=== PATIENT | male | born 1975 | race Hispanic/Latino ===

== ENCOUNTER 2017-04-22 08:02 | Inpatient (IN) | payer OTHER ==
--- NOTE | 2017-04-22 08:22 | ED PDOC ---
HPI: Skin/Bite Injury Time Seen by Provider: 04/22/17 08:09 Chief Complaint (Nursing): Back Pain Chief Complaint (Provider): Pain and Swelling to Perirectal Area History Per: Patient History/Exam Limitations: no limitations Onset/Duration Of Symptoms: Days (x1-2 months) Current Symptoms Are (Timing): Still Present Additional Complaint(s): Jet Swanson is a 41 year old male referred to the ED by his PMD for pain and swelling to his perirectal area. The patient is status post pilonidal abscess drainage occurring at the end of February with revision in March. The patient complains of increased pain and swelling upon evaluation. He denies fever or drainage. PMD: TBD Past Medical History Reviewed: Historical Data, Nursing Documentation, Vital Signs Vital Signs: Last Vital Signs Temp 97 F L 04/22/17 08:09 Pulse 83 04/22/17 08:09 Resp BP 127/76 04/22/17 08:09 Pulse Ox 98 04/22/17 08:26 - Medical History PMH: No Chronic Diseases - Family History Family History: States: Unknown Family Hx - Home Medications Home Medications: Ambulatory Orders Medication Instructions Recorded Atorvastatin [Lipitor] 10 mg PO DAILY 04/22/17 amLODIPine [Norvasc] 5 mg PO DAILY 04/22/17 - Allergies Allergies/Adverse Reactions: Allergies Allergy/AdvReac Type Severity Reaction Status Date / Time No Known Allergies Allergy Verified 04/22/17 08:16 Review of Systems ROS Statement: Except As Marked, All Systems Reviewed And Found Negative Constitutional: Negative for: Fever (and no drainage to perirectal area ) Skin: Positive for: Other (pain and swelling to perirectal area ) Physical Exam - Reviewed Nursing Documentation Reviewed: Yes Vital Signs Reviewed: Yes - Physical Exam Appears: Positive for: Non-toxic, No Acute Distress Head Exam: Positive for: ATRAUMATIC, NORMOCEPHALIC Cardiovascular/Chest: Positive for: Regular Rate, Rhythm. Negative for: Murmur Respiratory: Positive for: Normal Breath Sounds. Negative for: Respiratory Distress Back: Positive for: Other (erythema, induration, and tenderness to pilonidal area with no fluctuance or drainage noted) Extremity: Positive for: Normal ROM Neurologic/Psych: Positive for: Alert, Oriented (x3). Negative for: Motor/ Sensory Deficits - Laboratory Results Result Diagrams: 04/22/17 08:30 04/22/17 08:30 - ECG O2 Sat by Pulse Oximetry: 98 (RA) Pulse Ox Interpretation: Normal Medical Decision Making Medical Decision Making: Time: 08:09 Impression: Pain and swelling s/p pilonidal abscess drainage Plan: * VBG * CT Pelvis W IV contrast * CMP * CBC (with differential) * Blood Culture * Reevaluation Will admit patient. Scribe Attestation: Documented by Rachna Moody, acting as a scribe for Curt Cooper MD. Provider Scribe Attestation: All medical record entries made by the Scribe were at my direction and personally dictated by me. I have reviewed the chart and agree that the record accurately reflects my personal performance of the history, physical exam, medical decision making, and the department course for this patient. I have also personally directed, reviewed, and agree with the discharge instructions and disposition. Disposition - Clinical Impression Clinical Impression: Pilonidal abscess - Patient ED Disposition Is Patient to be Admitted: Yes - Disposition Disposition Time: 09:50 Condition: FAIR Forms: [employer] (Dominican) - Pt Status Changed To: Hospital Disposition Of: Inpatient - Admit Certification Admit to Inpatient:: After my assessment, the patient will require hospitalization for at least two midnights. This is because of the severity of symptoms shown, intensity of services needed, and/or the medical risk in this patient being treated as an outpatient. - POA Present On Arrival: None
[2017-04-22 08:44] LABS: BASO # 0.1 K/uL (0.0-0.2); BASO % 1.1 % (0.0-2.0); EOS # 0.1 K/uL (0.0-0.7); EOS % 1.7 % (0.0-4.0); HEMATOCRIT 43.8 % (35.0-51.0); LYMPH # 1.4 K/uL (1.0-4.3); LYMPH % 18.6 % (20.0-40.0); MEAN CELL VOLUME 87.2 fl (80.0-94.0); MEAN CORPUSCULAR HEMOGLOBIN 29.4 pg (27.0-31.0); MEAN CORPUSCULAR HGB CONC 33.7 g/dL (33.0-37.0); MEAN PLATELET VOLUME 8.1 fl (7.2-11.7); MONO # 0.8 K/uL (0.0-0.8); MONO % 10.2 % (0.0-10.0); NEUT % 68.4 % (50.0-75.0); NRBC % 0.1 % (0.0-0.0); RED CELL DISTRIBUTION WIDTH 13.9 % (11.5-14.5); WHITE BLOOD COUNT 7.4 K/uL (4.8-10.8)
[2017-04-22 08:49] LABS: VENOUS BLOOD GAS BASE EXCESS -0.4 mmol/L (0.0-2.0); VENOUS BLOOD GAS PCO2 42 mmHg (40-60); VENOUS BLOOD PH 7.38 (7.32-7.43)
[2017-04-22 08:52] LABS: ALB/GLOB RATIO 1.4 (1.0-2.1); ALKALINE PHOSPHATASE 71 U/L (38-126); ALT/SGPT 55 U/L (21-72); AST/SGOT 26 U/L (17-59); BILIRUBIN,TOTAL 0.9 mg/dl (0.2-1.3); BLOOD UREA NITROGEN 16 mg/dl (9-20); CALCIUM 9.3 mg/dL (8.4-10.2); CARBON DIOXIDE 23 mmol/L (22-30); CHLORIDE 109 mmol/L (98-107); GFR AFRICAN-AMERICAN > 60; GLUCOSE,RANDOM 98 mg/dL (75-110); POTASSIUM 4.1 MMOL/L (3.6-5.0); SODIUM 144 mmol/l (132-148); TOTAL PROTEIN 7.7 G/DL (6.3-8.2)
[2017-04-22] MEDS ORDERED: Iohexol 300 100 ML IJ ONE (10:00)
[2017-04-22] MEDS ORDERED: Sodium Chloride 0.9% 100 ML ONE (10:00)
--- NOTE | 2017-04-22 10:44 | CT ---
PROCEDURE: CT Pelvis with contrast HISTORY: h/o pilonidal abscess COMPARISON: None. TECHNIQUE: Contiguous axial images of the pelvis with contrast. Coronal and sagittal reformats generated. Contrast dose: 95 cc Omnipaque 300 Radiation dose: Total exam DLP = mGy-cm. This CT exam was performed using one or more of the following dose reduction techniques: Automated exposure control, adjustment of the mA and/or kV according to patient size, and/or use of iterative reconstruction technique. FINDINGS: Abscess interposed between the skin and the mid sacral elements with air-fluid level measuring 4.6 x 5.5 x 9.3 cm. No evidence of fistulous communication with adjacent pelvic structures. Adjacent cellulitis and subcutaneous edema. BLADDER: Unremarkable. No mass. REPRODUCTIVE ORGANS: Unremarkable. VISUALIZED BOWEL: Unremarkable. PERITONEUM: UnremarkablAlle, as visualized. No free fluid. No free air. LYMPH NODES: Unremarkable. No enlarged lymph nodes. VASCULATURE: Unremarkable. BONES: Contiguity establish between the abscess collection and the sacrum without evidence of osteomyelitis. OTHER FINDINGS: None. IMPRESSION: Subcutaneous abscess formation without sinus tract or fistulous communication with intrapelvic structures. No evidence of adjacent sacral osteomyelitis.
[2017-04-22] MEDS ORDERED: Lidocaine 1% Inj (20ml) ONE (12:20)
[2017-04-22] MEDS ORDERED: Lidocaine 2% w Epi 1:100,000 Inj IJ ONE (12:21)
[2017-04-22] MEDS ORDERED: Bupivacaine 0.25%-Epinephrine 1:200,000 (30 ml) Inj ONE (12:21)
[2017-04-22] MEDS ORDERED: Bupivacaine 0.5% Inj(30mL) ONE (12:21)
--- NOTE | 2017-04-22 12:27 | CP.PCM.HP ---
History of Present Illness - History of Present Illness History of Present Illness: CC: Pilonidal infection this is a 41 year old male with a past medical history of hypertension for which he takes Norvasc and hypercholesterolemia for which he takes Lipitor. The patient had pilonidal cyst drainage initially on 03/13/2017 with revision and drain placement on 03/17/2017. The patient's wound became infected with noted purulent drainage last week when the patient followed up with Dr. Mahajan and he was started on Bactrim DS. He now presents to the Emergency Department with worsening cellulitis surrounding the surgical site with purulent drainage surrounding the wound. He denies fever but does complain of increased pain and swelling upon evaluation. The patient is to go to the OR with Dr. Mahajan at 1 pm today for new I&D and will be admitted for postoperative wound care, antibiotics , and further management, as he has failed outpatient therapy. Patient denies cp , sob, weakness, n/v/d, rest of ROS as below. Present on Admission - Present on Admission Any Indicators Present on Admission: No Review of Systems - Hematologic/Lymphatic Additional comments: REVIEW OF SYSTEMS: CONSTITUTIONAL: No weight loss, fever, chills, weakness or fatigue. HEENT: Eyes: No visual loss, blurred vision, double vision or yellow sclerae. Ears, Nose, Throat: No hearing loss, sneezing, congestion, runny nose or sore throat. SKIN: No rash or itching. CARDIOVASCULAR: No chest pain, chest pressure or chest discomfort. No palpitations or edema. RESPIRATORY: No shortness of breath, cough or sputum. GASTROINTESTINAL: No anorexia, nausea, vomiting or diarrhea. No abdominal pain or blood. GENITOURINARY: no frequency, dysuria, cloudy urine NEUROLOGICAL: No headache, dizziness, syncope, paralysis, ataxia, numbness or tingling in the extremities. No change in bowel or bladder control. MUSCULOSKELETAL: No muscle, back pain, joint pain or stiffness. HEMATOLOGIC: No anemia, bleeding or bruising. LYMPHATICS: No enlarged nodes. No history of splenectomy. PSYCHIATRIC: No history of depression or anxiety. ENDOCRINOLOGIC: No reports of sweating, cold or heat intolerance. No polyuria or polydipsia. ALLERGIES: No history of asthma, hives, eczema or rhinitis. Past Patient History - Infectious Disease Hx of Infectious Diseases: None - Past Medical History & Family History Past Medical History?: Yes Past Family History: Reviewed and not pertinent - Past Social History Smoking Status: Never Smoked Alcohol: Social Drugs: Denies - CARDIAC Hx Cardiac Disorders: Yes Hx Hypercholesterolemia: Yes Hx Hypertension: Yes - PULMONARY Hx Respiratory Disorders: No - NEUROLOGICAL Hx Neurological Disorder: No - HEENT Hx HEENT Problems: No - RENAL Hx Chronic Kidney Disease: No - ENDOCRINE/METABOLIC Hx Endocrine Disorders: No - HEMATOLOGICAL/ONCOLOGICAL Hx Blood Disorders: No - MUSCULOSKELETAL/RHEUMATOLOGICAL Hx Musculoskeletal Disorders: No Hx Falls: No - GASTROINTESTINAL Hx Gastrointestinal Disorders: No - GENITOURINARY/GYNECOLOGICAL Hx Genitourinary Disorders: No - PSYCHIATRIC Hx Psychophysiologic Disorder: No Hx Substance Use: No - SURGICAL HISTORY Hx Surgeries: Yes Hx Appendectomy: Yes Other/Comment: pilonidal cyst surgery - ANESTHESIA Hx Anesthesia: Yes Hx Anesthesia Reactions: No Hx Malignant Hyperthermia: No Has any member of the family had a problem w/ anesthesia?: No Meds Allergies/Adverse Reactions: Allergies Allergy/AdvReac Type Severity Reaction Status Date / Time No Known Allergies Allergy Verified 04/22/17 08:16 Physical Exam - Additional Findings Additional findings: PHYSICAL EXAMINATION: GENERAL: The patient is alert and oriented x 3, no apparent distress, resting comfortably HEENT: Normocephalic, atraumatic. Extraocular movements intact. No sinus tenderness. Oropharynx clear. Mucous membranes are moist. NECK: Supple without lymph node. CHEST: Clear and good breath sounds equally. No wheezing. No rhonchi. HEART: S1, S2. Regular rate and rhythm. ABDOMEN: Soft, nontender. No organomegaly. EXTREMITIES: No cyanosis, clubbing or edema. NEUROLOGIC: No focal deficit. No sensory deficit. MUSCULOSKELETAL: There was no deformity. There was full range of motion in all the extremities. There was no edema. PSYCHOSOCIAL: No signs of depression and is nonfocal. INTEGUMENT: + Erythema and edema to pilonidal area with tenderness to palpation. Moist mucous membranes. . Results - Vital Signs Recent Vital Signs: Last Vital Signs Temp 97.9 F 04/22/17 11:00 Pulse 63 04/22/17 11:00 Resp 19 04/22/17 11:00 BP 144/85 04/22/17 11:00 Pulse Ox 98 04/22/17 11:00 - Labs Result Diagrams: 04/22/17 08:30 04/22/17 08:30 Labs: Laboratory Results - last 24 hr 04/22/17 04/22/17 04/22/17 08:30 08:30 08:40 WBC 7.4 RBC 5.03 Hgb 14.8 Hct 43.8 MCV 87.2 MCH 29.4 MCHC 33.7 RDW 13.9 Plt Count 273 MPV 8.1 Neut % (Auto) 68.4 Lymph % (Auto) 18.6 L Harper % (Auto) 10.2 H Eos % (Auto) 1.7 Baso % (Auto) 1.1 Neut # 5.0 Lymph # 1.4 Harper # 0.8 Eos # 0.1 Baso # 0.1 pO2 37 VBG pH 7.38 VBG pCO2 42 VBG HCO3 23.9 VBG Total CO2 26.1 VBG O2 Sat (Calc) 77.1 H VBG Base Excess -0.4 L VBG Potassium 4.1 Glucose 102 Lactate 0.9 FiO2 21.0 Sodium 144 139.0 Potassium 4.1 Chloride 109 H 106.0 Carbon Dioxide 23 Anion Gap 16 BUN 16 Creatinine 1.1 Est GFR ( Amer) > 60 Est GFR (Non-Af Amer) > 60 Random Glucose 98 Calcium 9.3 Total Bilirubin 0.9 AST 26 ALT 55 Alkaline Phosphatase 71 Total Protein 7.7 Albumin 4.5 Globulin 3.1 Albumin/Globulin Ratio 1.4 Venous Blood Potassium 4.1 Assessment & Plan - Assessment and Plan (Free Text) Plan: ASSESSMENT - Recurrent Pilonidal cellulitis and abscess - Essential hypertension - Hypercholesterolemia PLAN - Admit to med/surg - Consultation with Dr. Keyshawn alexandra- patient is at acceptable medical risk for low risk procedure (I&D of pilonidal abscess) and may proceed - Consultation with ID for antibiotic management - Social work consultation to set up VNC daily wound care once discharged - Continue Norvasc for htn control - Continue Lipitor - Symptomatic mgmt of pain - Estimated LOS > 2 midnights
[2017-04-22] MEDS ORDERED: Lactated Ringer's 1,000 ML IV SCH (12:45)
[2017-04-22] MEDS ORDERED: Propofol 10 mg/ml Inj (20 ML) ONE (12:53)
[2017-04-22] MEDS ORDERED: Midazolam 2 MG/2 ML VIAL ONE (12:54)
[2017-04-22] MEDS ORDERED: Succinylcholine 200 mg/10 ml Inj IV ONE (12:54)
[2017-04-22] MEDS ORDERED: Sodium Chloride 0.9% 1,000 ML IV ONE (12:57)
[2017-04-22] MEDS ORDERED: Bupivacaine 0.5% 50 ML IJ ONE (13:24)
[2017-04-22] MEDS ORDERED: ePHEDrine 50 mg/ml Inj ONE (13:28)
--- NOTE | 2017-04-22 13:46 | PCM.SURG1 ---
Surgeon's Initial Post Op Note - Surgeon's Notes Surgeon: Dr. Mahajan Drilling Field Specialist: Dr. Mao PGY3 Type of Anesthesia: General Endo, Local Pre-Operative Diagnosis: sacral abscess Operative Findings: bloody purulent fluid with in abscess cavity Post-Operative Diagnosis: same Operation Performed: incision and drainage of sacral abscess Specimen/Specimens Removed: cultures x3 Estimated Blood Loss: EBL {In ML}: 10 Blood Products Given: N/A Drains Used: No Drains Post-Op Condition: Good Date of Surgery/Procedure: 04/22/17 Time of Surgery/Procedure: 13:46
[2017-04-22] MEDS ORDERED: Oxycodone/Acetaminophen 5/325 mg Tab PO PRN ×2 (13:47)
[2017-04-22] MEDS ORDERED: HYDROmorphone 0.5 mg/0.5 ml ISec IVP PRN (14:06)
[2017-04-22] MEDS ORDERED: Vancomycin 1 g Inj IVPB ONE (14:45)
[2017-04-22] MEDS: Ampicillin/Sulbactam 1.5 GM in Sodium Chloride 0.9% 100 ML IVPB SCH ×2 (16:27→21:54)
--- NOTE | 2017-04-22 16:35 | CP.PCM.CON ---
History of Present Illness - History of Present Illness History of Present Illness: Surgery: Dr. Mahajan CC: recurrent sacral abscess Patient is 41 y/o male with pmhx of prior pilonidal cyst excision with grafting presents complaining of pain and redness to sacral area x 3 days. He noticed the redness and swelling to the sacral area about 1 week ago with attempt of po abx as output and drainage however was unsuccessful. Patient instructed to come to ER for evaluation. PMH: pilonidal cysy, HTN, HLD PSH: pilonidal cystectomy w/ graft Social: denies ETOu, tobacco, or drug abuse Review of Systems - Review of Systems All systems: reviewed and no additional remarkable complaints except Review of Systems: unless stated in HPI Past Patient History - Infectious Disease Hx of Infectious Diseases: None - Past Medical History & Family History Past Medical History?: Yes Past Family History: Reviewed and not pertinent - Past Social History Smoking Status: Never Smoked Alcohol: Social Drugs: Denies - CARDIAC Hx Cardiac Disorders: Yes Hx Hypercholesterolemia: Yes Hx Hypertension: Yes - PULMONARY Hx Respiratory Disorders: No - NEUROLOGICAL Hx Neurological Disorder: No - HEENT Hx HEENT Problems: No - RENAL Hx Chronic Kidney Disease: No - ENDOCRINE/METABOLIC Hx Endocrine Disorders: No - HEMATOLOGICAL/ONCOLOGICAL Hx Blood Disorders: No - MUSCULOSKELETAL/RHEUMATOLOGICAL Hx Musculoskeletal Disorders: No Hx Falls: No - GASTROINTESTINAL Hx Gastrointestinal Disorders: No - GENITOURINARY/GYNECOLOGICAL Hx Genitourinary Disorders: No - PSYCHIATRIC Hx Psychophysiologic Disorder: No Hx Substance Use: No - SURGICAL HISTORY Hx Surgeries: Yes Hx Appendectomy: Yes Other/Comment: pilonidal cyst surgery - ANESTHESIA Hx Anesthesia: Yes Hx Anesthesia Reactions: No Hx Malignant Hyperthermia: No Has any member of the family had a problem w/ anesthesia?: No Meds Allergies/Adverse Reactions: Allergies Allergy/AdvReac Type Severity Reaction Status Date / Time No Known Allergies Allergy Verified 04/22/17 08:16 - Medications Medications: Current Medications Amlodipine Besylate (Norvasc) 5 mg PO DAILY MARSHA Atorvastatin Calcium (Lipitor) 10 mg PO DAILY MARSHA Heparin Sodium (Porcine) (Heparin) 5,000 units SC Q12 MARSHA PRN Reason: Protocol Ampicillin Sodium/Sulbactam (Sodium 1.5 gm/ Sodium Chloride) 100 mls @ 100 mls/ hr IVPB Q6 MARSHA PRN Reason: Protocol Last Admin: 04/22/17 16:27 Dose: 100 mls/hr Vancomycin HCl 1 gm/ Sodium (Chloride) 250 mls @ 250 mls/hr IVPB Q12H MARSHA PRN Reason: Protocol Last Admin: 04/22/17 16:27 Dose: Not Given Lactated Ringer's (Lactated Ringer's) 1,000 mls @ 100 mls/hr IV .Q10H MARSHA Oxycodone/Acetaminophen (Percocet 5/325 Mg Tab) 1 tab PO Q4 PRN PRN Reason: Pain, moderate (4-7) Stop: 04/25/17 13:48 Oxycodone/Acetaminophen (Percocet 5/325 Mg Tab) 2 tab PO Q4 PRN PRN Reason: Pain, severe (8-10) Stop: 04/25/17 13:48 Physical Exam - Constitutional Appears: Non-toxic, No Acute Distress - Head Exam Head Exam: ATRAUMATIC, NORMOCEPHALIC - Eye Exam Eye Exam: EOMI, Normal appearance - ENT Exam ENT Exam: Mucous Membranes Moist - Respiratory Exam Respiratory Exam: NORMAL BREATHING PATTERN. absent: Respiratory Distress - Cardiovascular Exam Cardiovascular Exam: REGULAR RHYTHM. absent: Tachycardia - GI/Abdominal Exam GI & Abdominal Exam: Soft. absent: Distended, Tenderness - Rectal Exam Additional comments: sacral redness approximately 4cm extending circumfrentially from midline - Extremities Exam Extremities exam: Positive for: normal inspection. Negative for: calf tenderness Results - Vital Signs Recent Vital Signs: Last Vital Signs Temp 97.2 F L 04/22/17 16:23 Pulse 77 04/22/17 16:23 Resp 18 04/22/17 16:23 BP 120/72 04/22/17 16:23 Pulse Ox 98 04/22/17 16:23 - Labs Result Diagrams: 04/22/17 08:30 04/22/17 08:30 Labs: Laboratory Results - last 24 hr 04/22/17 04/22/17 04/22/17 08:30 08:30 08:40 WBC 7.4 RBC 5.03 Hgb 14.8 Hct 43.8 MCV 87.2 MCH 29.4 MCHC 33.7 RDW 13.9 Plt Count 273 MPV 8.1 Neut % (Auto) 68.4 Lymph % (Auto) 18.6 L Kerr % (Auto) 10.2 H Eos % (Auto) 1.7 Baso % (Auto) 1.1 Neut # 5.0 Lymph # 1.4 Kerr # 0.8 Eos # 0.1 Baso # 0.1 pO2 37 VBG pH 7.38 VBG pCO2 42 VBG HCO3 23.9 VBG Total CO2 26.1 VBG O2 Sat (Calc) 77.1 H VBG Base Excess -0.4 L VBG Potassium 4.1 Glucose 102 Lactate 0.9 FiO2 21.0 Sodium 144 139.0 Potassium 4.1 Chloride 109 H 106.0 Carbon Dioxide 23 Anion Gap 16 BUN 16 Creatinine 1.1 Est GFR ( Amer) > 60 Est GFR (Non-Af Amer) > 60 Random Glucose 98 Calcium 9.3 Total Bilirubin 0.9 AST 26 ALT 55 Alkaline Phosphatase 71 Total Protein 7.7 Albumin 4.5 Globulin 3.1 Albumin/Globulin Ratio 1.4 Venous Blood Potassium 4.1 Assessment & Plan - Assessment and Plan (Free Text) Assessment: 41 y/o male w/ sacral abscess refractory to outpatient treatment Plan: -OR today for I&D -patient tolerated procedure well -ok for reg diet -cont Unasyn/Vanco -f/u cultures -am labs -organize home nursing services for packing changes -DVT prophylaxis -ok for reg diet -further recs per Dr. Keyshawn Mazariegos PGY3
[2017-04-23] MEDS: Ampicillin/Sulbactam 1.5 GM in Sodium Chloride 0.9% 100 ML IVPB SCH ×4 (04:18→22:27)
[2017-04-23 06:33] LABS: BASO % 0.4 % (0.0-2.0); EOS # 0.1 K/uL (0.0-0.7); EOS % 0.8 % (0.0-4.0); HEMATOCRIT 40.3 % (35.0-51.0); LYMPH # 1.3 K/uL (1.0-4.3); LYMPH % 15.9 % (20.0-40.0); MEAN CELL VOLUME 87.9 fl (80.0-94.0); MEAN CORPUSCULAR HEMOGLOBIN 29.3 pg (27.0-31.0); MEAN CORPUSCULAR HGB CONC 33.3 g/dL (33.0-37.0); MEAN PLATELET VOLUME 8.5 fl (7.2-11.7); MONO # 0.9 K/uL (0.0-0.8); MONO % 11.7 % (0.0-10.0); NEUT # 5.7 K/uL (1.8-7.0); NEUT % 71.2 % (50.0-75.0); NRBC % 0.2 % (0.0-0.0); RED CELL DISTRIBUTION WIDTH 13.8 % (11.5-14.5)
[2017-04-23 06:47] LABS: BLOOD UREA NITROGEN 16 mg/dl (9-20); CALCIUM 8.5 mg/dL (8.4-10.2); CARBON DIOXIDE 27 mmol/L (22-30); CHLORIDE 105 mmol/L (98-107); GFR AFRICAN-AMERICAN > 60; GLUCOSE,RANDOM 100 mg/dL (75-110); POTASSIUM 3.9 MMOL/L (3.6-5.0); SODIUM 141 mmol/l (132-148)
--- NOTE | 2017-04-23 08:11 | OP ---
PROCEDURE DATE: 04/22/2017 SURGEON: Mitch Mahajan MD TRUCK LOADER OVERHEAD CRANE: Amberly Mao DO, resident. ANESTHESIOLOGIST: Dr. River. ANESTHESIA: General endotracheal tube anesthesia. PREOPERATIVE DIAGNOSES: 1. Sacral cellulitis. 2. Sacral abscess. POSTOPERATIVE DIAGNOSES: 1. Sacral cellulitis. 2. Sacral abscess. PROCEDURE PERFORMED: 1. Incision and drainage of deep, complicated sacral abscess. 2. Debridement of necrotic skin from sacrum. 3. Exploration of . INDICATION FOR PROCEDURE: Please refer to my separately dictated ER consultation for the history and physical. DESCRIPTION OF PROCEDURE: The patient was taken to the operating room and placed under general anesthesia, placed in the prone position after perioperative antibiotics were given and appropriate positioning and padding. The buttock area of fluctuance and cellulitis was marked with a surgical marker. Small incision placement was marked with a surgical marker separate from his previous incision. The area was prepped and draped in the usual clean and sterile manner with a #10 scalpel and deepened through the skin; and with a blunt clamp and a scissor, we dissected down into the abscess cavity. 30 mL of pus came out. We then explored the wound by making the incision larger with a scissor. We broke up any loculations of the entire 12 x 10 cm area of fluctuance and cellulitis. We then sent multiple wound cultures for AFB, fungus, Gram stain. There was some necrotic skin at the edges of the incision, which was debrided by scissor and scalpel technique. We then irrigated with antibiotic irrigation, expressed and broke up all the loculations. The cellulitis improved. We placed half-inch packing in the wound, then 4x4s and ABD dressing, flipped the patient over, extubated, and transferred to recovery room in stable condition. 30 mL of 0.5% Marcaine was used locally for postop analgesia. FINDINGS: As above. SPECIMENS: Multiple wound cultures. COMPLICATIONS: None. CONDITION: Stable. ESTIMATED BLOOD LOSS: Minimal. Mitch Mahajan MD
--- NOTE | 2017-04-23 08:39 | CP.PCM.PN ---
Subjective - Date & Time of Evaluation Date of Evaluation: 04/23/17 Time of Evaluation: 08:36 - Subjective Subjective: Surgery: Dr. Mahajan patient doing well today. Pain controlled. Denies f/c/n/v. Tolerating diet. Per nursing no acute events overnight. Objective - Vital Signs/Intake and Output Vital Signs (last 24 hours): Temp Pulse Resp BP Pulse Ox 98.6 F 70 18 124/64 94 L 04/23/17 08:24 04/23/17 08:24 04/23/17 08:24 04/23/17 08:24 04/23/17 08:24 - Medications Medications: Current Medications Acetaminophen (Tylenol 325mg Tab) 650 mg PO Q4 PRN PRN Reason: Fever >100.4 F Last Admin: 04/22/17 21:55 Dose: 650 mg Amlodipine Besylate (Norvasc) 5 mg PO DAILY MARSHA Atorvastatin Calcium (Lipitor) 10 mg PO DAILY MARSHA Heparin Sodium (Porcine) (Heparin) 5,000 units SC Q12 MARSHA PRN Reason: Protocol Last Admin: 04/22/17 21:53 Dose: 5,000 units Hydromorphone HCl (Dilaudid) 0.5 mg IVP ONCE ONE Stop: 04/23/17 09:31 Ampicillin Sodium/Sulbactam (Sodium 1.5 gm/ Sodium Chloride) 100 mls @ 100 mls/ hr IVPB Q6 MARSHA PRN Reason: Protocol Last Admin: 04/23/17 04:18 Dose: 100 mls/hr Vancomycin HCl 1 gm/ Sodium (Chloride) 250 mls @ 250 mls/hr IVPB Q12H MARSHA PRN Reason: Protocol Last Admin: 04/23/17 00:29 Dose: 250 mls/hr Oxycodone/Acetaminophen (Percocet 5/325 Mg Tab) 1 tab PO Q4 PRN PRN Reason: Pain, moderate (4-7) Stop: 04/25/17 13:48 Oxycodone/Acetaminophen (Percocet 5/325 Mg Tab) 2 tab PO Q4 PRN PRN Reason: Pain, severe (8-10) Stop: 04/25/17 13:48 - Labs Labs: 04/23/17 05:20 04/23/17 05:20 APTT 31.1 Seconds (25.6-37.1) 04/23/17 05:20 - Constitutional Appears: Non-toxic, No Acute Distress - Head Exam Head Exam: ATRAUMATIC, NORMOCEPHALIC - Eye Exam Eye Exam: EOMI, Normal appearance - ENT Exam ENT Exam: Mucous Membranes Moist - Respiratory Exam Respiratory Exam: Respiratory Distress, NORMAL BREATHING PATTERN - Cardiovascular Exam Cardiovascular Exam: REGULAR RHYTHM. absent: Tachycardia Assessment and Plan - Assessment and Plan (Free Text) Assessment: 41 y/o male s/p sacral abscess I&D, POD1 Plan: -packing change today -pain medication prior to packing change -need home nursing for wound care -f/u cultures -OOB -DVT prophylaxis -cont Vanco/Unasyn -d/w Dr. Pawan Mazariegos PGY3
--- NOTE | 2017-04-23 10:01 | CON ---
DATE: 04/22/2017 EMERGENCY ROOM CONSULTATION SURGEON: Mitch Mahajan MD HISTORY OF PRESENT ILLNESS: This is a 41-year-old male who presented to the emergency room with redness, pain, and swelling of his buttocks and sacrum. The patient had wide excision of recurrent pilonidal cyst and flap closure about a month ago. He developed a postoperative seroma and had a seroma cath placed. The patient presented to the emergency room today because last night he had redness and warmth after the drain came out 3 days ago and there was concern for infection. A CAT scan done by the emergency room staff showed an abscess in the sacral area measuring 10 x 7 x 6 cm and he has erythema and warmth consistent with cellulitis and fluctuance on exam. The patient was then told that he had to go to the operating room emergently for exploration and debridement and incision and drainage and packing. It was explained to the patient that we are trying to make a separate incision from his previous surgical incision from about a month ago and that through this, we will try to decompress the abscess, irrigate it, debride some of the skin and pack it and then he will need local wound care for several weeks for this to heal secondarily. Wound cultures would be sent. Previous wound cultures sent in the office showed staph aureus growing. He has been on antibiotics and we will have Infectious Disease consult on him and explained to the patient that it is going to take several weeks for this wound to heal and he may need to have further operations, may have poor scarring, may have seroma, hematoma, bleeding, infection. He understood this and wish to proceed. Mitch Mahajan MD
--- NOTE | 2017-04-23 12:47 | CARD ---
APPROVED REPORT EKG Measurement Heart [id number] <Conclusion> Normal sinus rhythm Normal ECG
--- NOTE | 2017-04-23 12:55 | CP.PCM.PN ---
Subjective - Date & Time of Evaluation Date of Evaluation: 04/23/17 Time of Evaluation: 11:45 - Subjective Subjective: Febrile to 101.4 last night now down to 99 NO CP no SOB no abd pain sacral pain controlled Objective - Vital Signs/Intake and Output Vital Signs (last 24 hours): Temp Pulse Resp BP Pulse Ox 98.6 F 70 18 124/64 94 L 04/23/17 08:24 04/23/17 08:24 04/23/17 08:24 04/23/17 08:24 04/23/17 08:24 - Medications Medications: Current Medications Acetaminophen (Tylenol 325mg Tab) 650 mg PO Q4 PRN PRN Reason: Fever >100.4 F Last Admin: 04/22/17 21:55 Dose: 650 mg Amlodipine Besylate (Norvasc) 5 mg PO DAILY [facility] Last Admin: 04/23/17 09:28 Dose: 5 mg Atorvastatin Calcium (Lipitor) 10 mg PO DAILY [facility] Last Admin: 04/23/17 09:28 Dose: 10 mg Heparin Sodium (Porcine) (Heparin) 5,000 units SC Q12 [facility] PRN Reason: Protocol Last Admin: 04/23/17 09:28 Dose: 5,000 units Ampicillin Sodium/Sulbactam (Sodium 1.5 gm/ Sodium Chloride) 100 mls @ 100 mls/ hr IVPB Q6 [facility] PRN Reason: Protocol Last Admin: 04/23/17 09:28 Dose: 100 mls/hr Vancomycin HCl 1 gm/ Sodium (Chloride) 250 mls @ 250 mls/hr IVPB Q12H [facility] PRN Reason: Protocol Last Admin: 04/23/17 00:29 Dose: 250 mls/hr Oxycodone/Acetaminophen (Percocet 5/325 Mg Tab) 1 tab PO Q4 PRN PRN Reason: Pain, moderate (4-7) Stop: 04/25/17 13:48 Oxycodone/Acetaminophen (Percocet 5/325 Mg Tab) 2 tab PO Q4 PRN PRN Reason: Pain, severe (8-10) Stop: 04/25/17 13:48 - Labs Labs: 04/23/17 05:20 04/23/17 05:20 APTT 31.1 Seconds (25.6-37.1) 04/23/17 05:20 - Constitutional Appears: Well, Non-toxic, No Acute Distress - Head Exam Head Exam: ATRAUMATIC, NORMAL INSPECTION, NORMOCEPHALIC - Eye Exam Eye Exam: EOMI, Normal appearance, PERRL - ENT Exam ENT Exam: Mucous Membranes Moist, Normal Exam - Neck Exam Neck Exam: Full ROM, Normal Inspection. absent: Lymphadenopathy - Respiratory Exam Respiratory Exam: Clear to Ausculation Bilateral, NORMAL BREATHING PATTERN - Cardiovascular Exam Cardiovascular Exam: REGULAR RHYTHM, +S1, +S2. absent: Murmur - GI/Abdominal Exam GI & Abdominal Exam: Soft, Normal Bowel Sounds. absent: Tenderness - Rectal Exam Additional comments: Dressing in place with packing - Extremities Exam Extremities Exam: Full ROM, Normal Capillary Refill, Normal Inspection. absent : Joint Swelling, Pedal Edema - Back Exam Back Exam: absent: CVA tenderness (L), CVA tenderness (R) - Neurological Exam Neurological Exam: Alert, Awake, CN II-XII Intact, Normal Gait, Oriented x3 Neuro motor strength exam: Left Upper Extremity: 5, Right Upper Extremity: 5, Left Lower Extremity: 5, Right Lower Extremity: 5 - Psychiatric Exam Psychiatric exam: Normal Affect, Normal Mood - Skin Skin Exam: Dry, Intact, Normal Color, Warm Assessment and Plan (1) Pilonidal abscess Assessment & Plan: recurrent Status: Acute (2) HTN (hypertension) Status: Chronic (3) Hyperlipidemia Status: Chronic - Assessment and Plan (Free Text) Assessment: 41 y/o gent with hx of HTN, Hyperlipidemia, Recurrent Pilonidal abscess, came in bec of sacral pain and swelling. Hx of recent Incision and drainage of abscess. done in March. (1) Pilonidal abscess/Cellulitis s/p Incision and Drainage recurrent Status: Acute Wound c/s : Gram + cocci Plastic Sx - Dr Mahajan Wound Packing every other day ID consulted - dr Farrell - rec to cont IV Unasyn and Vanco Pt has travel plans to [place], and cannot stay fo IV antibiotics despite discussion of benefits, and poss risk Plan to d/c home on PO antibiotics -Augmentin and Bactrim PO x 10 days once discharged (2) HTN (hypertension) Status: Chronic cont Norvasc (3) Hyperlipidemia Status: Chronic cont statin DVT proph - Heparin
--- NOTE | 2017-04-23 15:26 | CP.PCM.CON ---
History of Present Illness - History of Present Illness History of Present Illness: Jet Swanson is a 41 year old male referred to the ED by his PMD for pain and swelling to his perirectal area. The patient is status post pilonidal abscess drainage occurring at the end of February with revision in March. History obtained from other providers. Past Patient History - Infectious Disease Hx of Infectious Diseases: None - Past Medical History & Family History Past Medical History?: Yes Past Family History: Reviewed and not pertinent - Past Social History Smoking Status: Never Smoked Alcohol: Social Drugs: Denies - CARDIAC Hx Cardiac Disorders: Yes Hx Hypercholesterolemia: Yes Hx Hypertension: Yes - PULMONARY Hx Respiratory Disorders: No - NEUROLOGICAL Hx Neurological Disorder: No - HEENT Hx HEENT Problems: No - RENAL Hx Chronic Kidney Disease: No - ENDOCRINE/METABOLIC Hx Endocrine Disorders: No - HEMATOLOGICAL/ONCOLOGICAL Hx Blood Disorders: No - MUSCULOSKELETAL/RHEUMATOLOGICAL Hx Musculoskeletal Disorders: No Hx Falls: No - GASTROINTESTINAL Hx Gastrointestinal Disorders: No - GENITOURINARY/GYNECOLOGICAL Hx Genitourinary Disorders: No - PSYCHIATRIC Hx Psychophysiologic Disorder: No Hx Substance Use: No - SURGICAL HISTORY Hx Surgeries: Yes Hx Appendectomy: Yes Other/Comment: pilonidal cyst surgery - ANESTHESIA Hx Anesthesia: Yes Hx Anesthesia Reactions: No Hx Malignant Hyperthermia: No Has any member of the family had a problem w/ anesthesia?: No Meds Allergies/Adverse Reactions: Allergies Allergy/AdvReac Type Severity Reaction Status Date / Time No Known Allergies Allergy Verified 04/22/17 08:16 - Medications Medications: Current Medications Acetaminophen (Tylenol 325mg Tab) 650 mg PO Q4 PRN PRN Reason: Fever >100.4 F Last Admin: 04/22/17 21:55 Dose: 650 mg Amlodipine Besylate (Norvasc) 5 mg PO DAILY [facility] Last Admin: 04/23/17 09:28 Dose: 5 mg Atorvastatin Calcium (Lipitor) 10 mg PO DAILY [facility] Last Admin: 04/23/17 09:28 Dose: 10 mg Heparin Sodium (Porcine) (Heparin) 5,000 units SC Q12 [facility] PRN Reason: Protocol Last Admin: 04/23/17 09:28 Dose: 5,000 units Ampicillin Sodium/Sulbactam (Sodium 1.5 gm/ Sodium Chloride) 100 mls @ 100 mls/ hr IVPB Q6 [facility] PRN Reason: Protocol Last Admin: 04/23/17 09:28 Dose: 100 mls/hr Vancomycin HCl 1 gm/ Sodium (Chloride) 250 mls @ 250 mls/hr IVPB Q12H [facility] PRN Reason: Protocol Last Admin: 04/23/17 13:09 Dose: 250 mls/hr Oxycodone/Acetaminophen (Percocet 5/325 Mg Tab) 1 tab PO Q4 PRN PRN Reason: Pain, moderate (4-7) Stop: 04/25/17 13:48 Oxycodone/Acetaminophen (Percocet 5/325 Mg Tab) 2 tab PO Q4 PRN PRN Reason: Pain, severe (8-10) Stop: 04/25/17 13:48 Results - Vital Signs Recent Vital Signs: Last Vital Signs Temp 98.7 F 04/23/17 13:04 Pulse 78 04/23/17 13:04 Resp 20 04/23/17 13:04 BP 118/67 04/23/17 13:04 Pulse Ox 95 04/23/17 13:04 - Labs Result Diagrams: 04/23/17 05:20 04/23/17 05:20 Labs: Laboratory Results - last 24 hr 04/23/17 04/23/17 04/23/17 05:20 05:20 05:20 WBC 8.0 RBC 4.59 Hgb 13.4 Hct 40.3 MCV 87.9 MCH 29.3 MCHC 33.3 RDW 13.8 Plt Count 246 MPV 8.5 Neut % (Auto) 71.2 Lymph % (Auto) 15.9 L [place] % (Auto) 11.7 H Eos % (Auto) 0.8 Baso % (Auto) 0.4 Neut # 5.7 Lymph # 1.3 [place] # 0.9 H Eos # 0.1 Baso # 0.0 APTT 31.1 Sodium 141 Potassium 3.9 Chloride 105 Carbon Dioxide 27 Anion Gap 13 BUN 16 Creatinine 1.2 Est GFR ( Amer) > 60 Est GFR (Non-Af Amer) > 60 Random Glucose 100 Calcium 8.5 Assessment & Plan - Assessment and Plan (Free Text) Assessment: Pilonidal abscess s/p i and d x 3 since february growing cocci from wound. Most likely staph Agree with Vancomycin and Zosyn # 2/7 In event of discharge, then switch to Augmentin 875 po bid and Bactrim ds 1 po bid for 10 days
[2017-04-24] MEDS: Ampicillin/Sulbactam 1.5 GM in Sodium Chloride 0.9% 100 ML IVPB SCH ×2 (04:14→10:41)
[2017-04-24 06:36] LABS: BASO % 0.6 % (0.0-2.0); EOS # 0.1 K/uL (0.0-0.7); HEMATOCRIT 40.4 % (35.0-51.0); LYMPH # 1.6 K/uL (1.0-4.3); MEAN CORPUSCULAR HEMOGLOBIN 29.1 pg (27.0-31.0); MEAN CORPUSCULAR HGB CONC 33.1 g/dL (33.0-37.0); MEAN PLATELET VOLUME 8.4 fl (7.2-11.7); MONO # 0.7 K/uL (0.0-0.8); MONO % 12.3 % (0.0-10.0); NEUT # 3.4 K/uL (1.8-7.0); NEUT % 58.1 % (50.0-75.0); NRBC % 0.4 % (0.0-0.0); RED CELL DISTRIBUTION WIDTH 13.8 % (11.5-14.5); WHITE BLOOD COUNT 5.9 K/uL (4.8-10.8)
[2017-04-24 06:45] LABS: BLOOD UREA NITROGEN 14 mg/dl (9-20); CALCIUM 8.8 mg/dL (8.4-10.2); CARBON DIOXIDE 23 mmol/L (22-30); CHLORIDE 105 mmol/L (98-107); GFR AFRICAN-AMERICAN > 60; GLUCOSE,RANDOM 94 mg/dL (75-110); SODIUM 140 mmol/l (132-148)
[2017-04-24 07:46] VITALS: BP 108/69; RESP 20; TEMP 98.4; O2SAT 97
--- NOTE | 2017-04-24 09:33 | CP.PCM.DIS ---
Provider - Provider Date of Admission: 04/22/17 09:49 Attending physician: Cam Song DO Consults: Plastic Surgery : Dr Mahajan ID : Dr Farrell Time Spent in preparation of Discharge (in minutes): 35 Diagnosis - Discharge Diagnosis (1) Abscess of sacrum Status: Acute (2) Pilonidal cyst with abscess Status: Acute (3) Cellulitis of sacral region Status: Acute (4) HTN (hypertension) Status: Chronic (5) Hyperlipidemia Status: Chronic Hospital Course - Lab Results Lab Results: Micro Results 04/22/17 08:30 Blood Blood Culture - Preliminary NO GROWTH AFTER 48 HOURS 04/22/17 17:37 Sacral Gram Stain - Final 04/22/17 17:37 Sacral Wound Culture - Final Staphylococcus Aureus 04/22/17 17:37 Sacral Gram Stain - Final 04/22/17 17:37 Sacral Wound Culture - Final Staphylococcus Aureus 04/22/17 17:37 Sacral Gram Stain - Final 04/22/17 17:37 Sacral Wound Culture - Final Staphylococcus Aureus 04/22/17 21:00 Blood Blood Culture - Preliminary NO GROWTH AFTER 24 HOURS 04/22/17 21:00 Blood Blood Culture - Preliminary NO GROWTH AFTER 24 HOURS Most Recent Lab Values WBC 5.9 K/uL (4.8-10.8) 04/24/17 05:25 RBC 4.59 Mil/uL (4.40-5.90) 04/24/17 05:25 Hgb 13.4 g/dL (12.0-18.0) 04/24/17 05:25 Hct 40.4 % (35.0-51.0) 04/24/17 05:25 MCV 88.0 fl (80.0-94.0) 04/24/17 05:25 MCH 29.1 pg (27.0-31.0) 04/24/17 05:25 MCHC 33.1 g/dL (33.0-37.0) 04/24/17 05:25 RDW 13.8 % (11.5-14.5) 04/24/17 05:25 Plt Count 260 K/uL (130-400) 04/24/17 05:25 MPV 8.4 fl (7.2-11.7) 04/24/17 05:25 Neut % (Auto) 58.1 % (50.0-75.0) 04/24/17 05:25 Lymph % (Auto) 27.0 % (20.0-40.0) 04/24/17 05:25 [place] % (Auto) 12.3 % (0.0-10.0) H 04/24/17 05:25 Eos % (Auto) 2.0 % (0.0-4.0) 04/24/17 05:25 Baso % (Auto) 0.6 % (0.0-2.0) 04/24/17 05:25 Neut # 3.4 K/uL (1.8-7.0) 04/24/17 05:25 Lymph # 1.6 K/uL (1.0-4.3) 04/24/17 05:25 [place] # 0.7 K/uL (0.0-0.8) 04/24/17 05:25 Eos # 0.1 K/uL (0.0-0.7) 04/24/17 05:25 Baso # 0.0 K/uL (0.0-0.2) 04/24/17 05:25 APTT 31.1 Seconds (25.6-37.1) 04/23/17 05:20 pO2 37 mm/Hg (30-55) 04/22/17 08:40 VBG pH 7.38 (7.32-7.43) 04/22/17 08:40 VBG pCO2 42 mmHg (40-60) 04/22/17 08:40 VBG HCO3 23.9 mmol/L 04/22/17 08:40 VBG Total CO2 26.1 mmol/L (22-28) 04/22/17 08:40 VBG O2 Sat (Calc) 77.1 % (40-65) H 04/22/17 08:40 VBG Base Excess -0.4 mmol/L (0.0-2.0) L 04/22/17 08:40 VBG Potassium 4.1 mmol/L (3.6-5.2) 04/22/17 08:40 Sodium 139.0 mmol/L (132-148) 04/22/17 08:40 Chloride 106.0 mmol/L (98-107) 04/22/17 08:40 Glucose 102 mg/dL (75-110) 04/22/17 08:40 Lactate 0.9 mmol/L (0.7-2.1) 04/22/17 08:40 FiO2 21.0 % 04/22/17 08:40 Sodium 140 mmol/l (132-148) 04/24/17 05:25 Potassium 4.0 MMOL/L (3.6-5.0) 04/24/17 05:25 Chloride 105 mmol/L (98-107) 04/24/17 05:25 Carbon Dioxide 23 mmol/L (22-30) 04/24/17 05:25 Anion Gap 16 (10-20) 04/24/17 05:25 BUN 14 mg/dl (9-20) 04/24/17 05:25 Creatinine 1.0 mg/dL (0.8-1.5) 04/24/17 05:25 Est GFR ( Amer) > 60 04/24/17 05:25 Est GFR (Non-Af Amer) > 60 04/24/17 05:25 Random Glucose 94 mg/dL (75-110) 04/24/17 05:25 Calcium 8.8 mg/dL (8.4-10.2) 04/24/17 05:25 Total Bilirubin 0.9 mg/dl (0.2-1.3) 04/22/17 08:30 AST 26 U/L (17-59) 04/22/17 08:30 ALT 55 U/L (21-72) 04/22/17 08:30 Alkaline Phosphatase 71 U/L (38-126) 04/22/17 08:30 Total Protein 7.7 G/DL (6.3-8.2) 04/22/17 08:30 Albumin 4.5 g/dL (3.5-5.0) 04/22/17 08:30 Globulin 3.1 gm/dL (2.2-3.9) 04/22/17 08:30 Albumin/Globulin Ratio 1.4 (1.0-2.1) 04/22/17 08:30 Venous Blood Potassium 4.1 mmol/L (3.6-5.2) 04/22/17 08:40 - Hospital Course Hospital Course: 41 y/o gent with hx of HTN, Hyperlipidemia, Recurrent Pilonidal cyst/ abscess, came in bec of sacral pain and swelling. Hx of recent Incision and drainage of abscess done in March. (1) Sacral Cellulitis /abscess with history of recurrent Pilonidal Cyst / abscess s/p Incision and Drainage, Debridement Status: Acute Wound c/s : MSSA Plastic Sx consulted - Dr Mahajan Wound Packing every other day - cont at home, instructed pt /family ID consulted - dr Farrell - rec to cont IV Unasyn and Vanco Pain mgt Pt has travel plans to [place], and cannot stay fo IV antibiotics despite discussion of benefits, and poss risk Plan to d/c home on PO antibiotics -Augmentin and Bactrim PO x 10 days as rec by Dr Farrell (2) HTN (hypertension) Status: Chronic cont Norvasc (3) Hyperlipidemia Status: Chronic cont statin DVT proph - Heparin Discharge Exam - Head Exam Head Exam: ATRAUMATIC, NORMAL INSPECTION, NORMOCEPHALIC - Eye Exam Eye Exam: EOMI, Normal appearance, PERRL Pupil Exam: NORMAL ACCOMODATION - ENT Exam ENT Exam: Mucous Membranes Moist, Normal External Ear Exam - Neck Exam Neck exam: Full Rom - Respiratory Exam Respiratory Exam: NORMAL BREATHING PATTERN. absent: Respiratory Distress - Cardiovascular Exam Cardiovascular Exam: REGULAR RHYTHM, +S1, +S2 - GI/Abdominal Exam GI & Abdominal Exam: Normal Bowel Sounds, Soft. absent: Tenderness - Extremities Exam Extremities exam: full ROM, normal capillary refill, pedal pulses present Additional comments: no calf tenderness - Back Exam Back exam: FULL ROM. absent: CVA tenderness (L), CVA tenderness (R), paraspinal tenderness, vertebral tenderness Additional comments: sacral wound with dressing - Neurological Exam Neurological exam: Alert, CN II-XII Intact, Normal Gait, Oriented x3, Reflexes Normal - Psychiatric Exam Psychiatric exam: Normal Affect, Normal Mood - Skin Skin Exam: Dry, Normal Color, Warm Discharge Plan - Discharge Medications Prescriptions: Amoxicillin/Clavulanate [Augmentin 875 MG-125 MG] 1 tab PO BID #20 tab oxyCODONE/Acetaminophen [Percocet 5/325 mg Tab] 1 tab PO Q6 #20 tab Sulfamethoxazole/Trimethoprim [Bactrim DS 800 mg-160 mg] 1 tab PO BID #20 tab - Follow Up Plan Condition: GOOD Disposition: HOME/ ROUTINE Instructions: Wound Infection (DC), Pilonidal Cyst (DC), Abscess (GEN) Additional Instructions: follow up up with Dr Mahajan on Saturday for dressing change ff up with PMD aletha Referrals: Mitch Mahajan MD [Medical Doctor] -
[2017-04-24] MEDS: HYDROmorphone 0.5 mg/0.5 ml ISec IVP ONE ×2 (10:38→13:11)
--- NOTE | 2017-04-24 10:40 | CP.PCM.PN ---
Subjective - Date & Time of Evaluation Date of Evaluation: 04/24/17 Time of Evaluation: 07:40 - Subjective Subjective: Patient seen and examined this AM. TRISTIANEO. Patients states pain is well controlled , denies fevers or chills Objective - Vital Signs/Intake and Output Vital Signs (last 24 hours): Temp Pulse Resp BP Pulse Ox 98.4 F 58 L 20 108/69 97 04/24/17 07:45 04/24/17 07:45 04/24/17 07:45 04/24/17 07:45 04/24/17 07:45 - Medications Medications: Current Medications Acetaminophen (Tylenol 325mg Tab) 650 mg PO Q4 PRN PRN Reason: Fever >100.4 F Last Admin: 04/22/17 21:55 Dose: 650 mg Amlodipine Besylate (Norvasc) 5 mg PO DAILY [facility] Last Admin: 04/23/17 09:28 Dose: 5 mg Atorvastatin Calcium (Lipitor) 10 mg PO DAILY [facility] Last Admin: 04/23/17 09:28 Dose: 10 mg Heparin Sodium (Porcine) (Heparin) 5,000 units SC Q12 [facility] PRN Reason: Protocol Last Admin: 04/23/17 22:25 Dose: 5,000 units Ampicillin Sodium/Sulbactam (Sodium 1.5 gm/ Sodium Chloride) 100 mls @ 100 mls/ hr IVPB Q6 [facility] PRN Reason: Protocol Last Admin: 04/24/17 04:14 Dose: 100 mls/hr Vancomycin HCl 1 gm/ Sodium (Chloride) 250 mls @ 250 mls/hr IVPB Q12H [facility] PRN Reason: Protocol Last Admin: 04/24/17 00:14 Dose: 250 mls/hr Oxycodone/Acetaminophen (Percocet 5/325 Mg Tab) 1 tab PO Q4 PRN PRN Reason: Pain, moderate (4-7) Stop: 04/25/17 13:48 Oxycodone/Acetaminophen (Percocet 5/325 Mg Tab) 2 tab PO Q4 PRN PRN Reason: Pain, severe (8-10) Stop: 04/25/17 13:48 - Labs Labs: 04/24/17 05:25 04/24/17 05:25 APTT 31.1 Seconds (25.6-37.1) 04/23/17 05:20 - Constitutional Appears: Non-toxic, No Acute Distress - Head Exam Head Exam: ATRAUMATIC, NORMOCEPHALIC - Eye Exam Eye Exam: Normal appearance. absent: Conjunctival injection, Scleral icterus - ENT Exam ENT Exam: Mucous Membranes Moist - Respiratory Exam Respiratory Exam: NORMAL BREATHING PATTERN. absent: Accessory Muscle Use, Respiratory Distress - Cardiovascular Exam Cardiovascular Exam: RRR - GI/Abdominal Exam GI & Abdominal Exam: absent: Distended - Rectal Exam Rectal Exam: NORMAL INSPECTION - Extremities Exam Extremities Exam: absent: Calf Tenderness, Pedal Edema Additional comments: buttock with dressing moderately saturated with sero-sanguinous fluid, packing in place, erythema approximately 5cm in diameter around the incision site, no induration or fluctuance - Back Exam Back Exam: absent: rash noted - Neurological Exam Neurological Exam: Alert, Awake, Normal Gait, Oriented x3. absent: Abnormal Gait - Psychiatric Exam Psychiatric exam: Normal Affect, Normal Mood - Skin Skin Exam: Dry, Normal Color, Warm Assessment and Plan - Assessment and Plan (Free Text) Assessment: 41M POD#2 s/p incision and drainage of gluteal abscess Plan: -Clear for discharge from a surgical standpoint with PO antibiotics, follow up with Dr. Mahajan at his office on Saturday, and home wound care that can be performed by the patient's girlfriend. Thank you for the pleasure of this consult Discussed with Dr. Keyshawn Jones, PGY2
[2017-04-24 10:42] VITALS: PULSE 60
[2017-04-24] MEDS ORDERED: Tmp-Smz 800 mg-160 mg DS Tab PO SCH (11:45)
[2017-04-24] MEDS ORDERED: Amoxicillin-Clav 875-125 mg Tab PO SCH (11:45)
== END 2017-04-24 14:20 | disposition home or self-care (01) | DRG 603 ==
LOC: H.ER 08:02 → H.ERHOLD 09:49 → H.MEDSURG1 10:52
PROVIDERS: ADMIT Internal Medicine; ATTEND Internal Medicine
PROC: 0H98XZX Drainage of Buttock Skin, External Approach, Diagnostic (ICD-10-PCS; 2017-04-22)
PROC: 0HB6XZZ Excision of Back Skin, External Approach (ICD-10-PCS; principal; 2017-04-22 13:30)
DX: L05.01 Pilonidal cyst with abscess (principal); I96 Gangrene, not elsewhere classified; L03.312 Cellulitis of back [any part except buttock and flank]; I10 Essential (primary) hypertension; B95.61 Methicillin susceptible Staphylococcus aureus infection as the cause of diseases classified elsewhere; E78.5 Hyperlipidemia, unspecified